=== PATIENT | female | born 2005 | race Two or more races ===

== ENCOUNTER 2024-08-04 08:43 | Outpatient (AMB) | payer MEDICAID, SELFPAY ==
--- NOTE | 2024-08-04 08:12 | GSCOFFNT_ITS ---
Vital Signs - [facility] 08/04/24 08:49 Height 1.6 m Height Method Stated Weight 67.245 kg Weight Measurement Method Standing Scale BMI 26.2 BP 115/74 Blood Pressure Source Automatic Cuff Blood Pressure Location Right Upper Arm Position Sitting Respiration 18 Pulse 62 Pulse Source Monitor Temp 97.4 F Temp Source Temporal Artery Scan Pulse Oximetry (%) 96 Oxygen Delivery Method Room Air Med/Allergies Allergies & Medications Allergies NKA* Allergy (Uncoded 08/04/24 08:50) Medication Reconciliation prednisolone sodium phosphate 15 mg/5 mL (3 mg/mL) oral solution 2 tsp PO QAM #60 mL 08/10/16 [Rx Confirmed 08/04/24] MA Intake Visit Data Collection New Patient or Established: Established Patient (seen at [facility] [place] within 3 years) Seen by Clinical Staff ONLY (RN/MA): No Reason for Visit:: rectal bleeding Pain Present Currently: No Pain scale:: 0 Career Consultant Required: No PCP or OBGYN visit in last 3 months: Yes Hx Now: No Do You Feel Safe at Home: Yes Authorities Contacted: N/A Smoking Status Smoking Status: Never smoker Immunization / Flu Flu Vaccine in the Last 12 Months: Yes Flu Vaccine Exclusion Criteria: Already Received Past Medical History Social History SMOKING STATUS: Smoking status: Never smoker HPI HPI Narrative 19 year old female with pmh of prediabetes and hyperlipidemia presents with rectal bleeding and pain for the past few months. Patient states that when she has a bowel movement that she experiences a significant amount of pain with bright red blood in her stool and when she wipes. She states the pain is a 8 or 9 out of 10 and feels like passing shards of glass. She states that the amount of rectal bleeding has increased in the past few weeks. She states that she experiences bowel movements about once a week. She was previously experiencing hard, pebbly stools, but recently has softer bowel movements since implementing miralax daily. However, her bowel movements are still once a week. She denies diarrhea, fatigue, unexpected weight loss, dizziness, or shortness of breath. She states that she drinks 2 to 3 40 oz bottles of water per day. She is unsure of how much her fiber intake is. She has only tried miralax to help with her symptoms. She denies noticing anything that makes her symptoms worse. PMH: PreDM, HLD PSHx: None Meds: Miralax prn Allergies: NKDA Family hx: No known CRC in family ROS Review of Systems Systems Reviewed: All systems reviewed, normal except as documented Constitutional Constitutional: Denies fatigue, Denies fever(s), Denies weakness and Denies weight loss Cardiovascular Cardiovascular: Denies dyspnea Respiratory Respiratory: Denies dyspnea Gastrointestinal Gastrointestinal: Denies abdominal pain, Reports hematochezia and Denies melena Neurologic Neurologic: Denies weakness Endocrine Endocrine: Denies fatigue Objective/Exam General General Appearance: alert, cooperative and well groomed Resp Respiratory exam: Absent respiratory distress Rectal Rectal exam: Present tenderness and other (fissure at posterior midline. KADEN and anoscopy deferred due to severe pain) Assessment & Plan Diagnosis / Problem List (1) Anal fissure: Assessment & Plan: 19 year old female with pmh of prediabetes and hyperlipidemia presents with red rectal bleeding and sharp pain on defecation, with anal fissure on exam and likely internal hemorrhoids Plan: Compound cream sent to pharmacy for patient to apply to anal region. Patient's PCP sent suppositories to the pharmacy that the patient is reluctant to try. She is informed to try the cream and to try the suppositories later if she feels comfortable. She was given a handout with methods to help reduce the pain and symptoms of hemorrhoids and fissures. All questions were answered and patient expresses understanding. She will return in 6 weeks for follow-up. (2) Internal hemorrhoids: Office Procedures GNS Level of Care Nursing/Assessment Patient Status: Established Patient Nursing Assessment/Reassesment: Medication Reconciliation, Update PMH in EMR and Vital Signs Coordination of Care: Complex Care and Chronic Disease 1-5, Consent,records obtained, informed consent, Education Simp Pt/Fam, Results/Orders obtained and Staff clarify orders Established Patient Charge Established Patient Point Assignment: 90 Established Patient Point Charge: EP Level 3 (80-115) Patient Portal Questionaires Social History Tobacco History Smoking Status: Never smoker Domestic Abuse History Do You Feel Safe at Home: Yes Review of Systems Report any current symptoms Only answer those that you have currently: General Complaints fatigue: No fever(s): No weakness: No weight loss: No Heart & Circulation shortness of breath: No Digestive System abdominal pain: No bright, red blood in stools: Yes black, tarry stools: No Past Medical History Past Medical History Have you ever been diagnosed with any of the following:
[2024-08-04 08:49] VITALS: BP 115/74; PULSE 62; RESP 18; TEMP 36.3; O2SAT 96; BMI 26.2
== END 2024-08-04 09:34 | disposition home or self-care (01) ==
LOC: HODSRG 08:43
PROVIDERS: PCP Nurse Practitioner Family; Referring Provider Nurse Practitioner Family; Supervising Provider Surgery; Visit Provider Surgery
DX: K60.2 Anal fissure, unspecified (principal); K64.8 Other hemorrhoids
CPT/HCPCS: 99213; G0463